=== PATIENT | female | born 1955 | race Caucasian/White ===

== ENCOUNTER → 2024-04-25 16:20 | Outpatient (BNVA) | payer SELFPAY | PROVIDERS: PCP Nurse Practitioner Family; Visit Provider Internal Medicine Cardiovascular Disease | DX: I44.0 Atrioventricular block, first degree (principal); R07.9 Chest pain, unspecified; I49.8 Other specified cardiac arrhythmias; I49.1 Atrial premature depolarization; Q24.8 Other specified congenital malformations of heart | CPT/HCPCS: 93005 ==

== ENCOUNTER 2024-06-11 08:17 | Outpatient (CLI) | payer SELFPAY ==
--- NOTE | 2024-06-11 08:30 | USCV_ITS ---
Maria Fernanda Navas Age: 69 Gender: F : 1955 Exam Date: 06/11/2024 08:30 Ordering Phys: Narendra Alanis MD ([email or web address]) Technologist: CT Exam Location: [facility] – [place] Indication: svt BP: 118 / 76 HR: 51 Rhythm: Sinus Technical Quality: Adequate MEASUREMENTS (Male / Female) Normal Values 2D ECHO LVOT Diameter 2.1 cm LV Ejection Fraction MOD 4C 70.5 % LV Ejection Fraction MOD 2C 78.8 % LV Ejection Fraction 2C AL 80.5 % LA Diameter 2.8 cm RA Systolic Volume 4C AL 69.9 ml RA Systolic Volume 4C MOD 68.8 ml LA Sys Volume AL 45.7 cm cubed LA Sys Volume Index AL 26.2 cm cubed/m squared Aorta at Sinotubular Diameter 2.4 cm IVC Diameter 2.0 cm M-MODE LA Ao Ratio MM 1.2 AV Cusp Separation MM 1.9 cm DOPPLER AV Peak Velocity 150.0 cm/s LVOT Peak Velocity 124.0 cm/s AV Area Cont Eq vti 2.5 cm squared AV Area Cont Eq pk 2.8 cm squared MV Peak Velocity 111.0 cm/s MV Area PHT 2.4 cm squared Mitral E to A Ratio 1.2 TR Peak Velocity 202.0 cm/s TR Peak Gradient 16.3 mmHg TV Peak E Velocity 63.0 cm/s PV Peak Velocity 148.0 cm/s FINDINGS Left Ventricle Normal left ventricular size, systolic function and wall thickness, with no regional wall motion abnormalities. Left ventricular ejection fraction is estimated at 60 %. Grade I/IV diastolic dysfunction (abnormal relaxation filling pattern), normal to mildly elevated filling pressures. Right Ventricle The right ventricle is normal in size and function. Right Atrium Moderately increased right atrial size. Left Atrium The left atrium is normal in size. Mitral Valve Thickened mitral valve. No mitral valve stenosis. Trace mitral valve regurgitation. Aortic Valve Moderate aortic valve calcification. No aortic valve stenosis. Trace aortic valve regurgitation. Tricuspid Valve Structurally normal tricuspid valve. [id number] tricuspid valve regurgitation. Pulmonic Valve Structurally normal pulmonic valve without significant stenosis. There is no pulmonic regurgitation. Pericardium Normal pericardium without effusion. Aorta Normal ascending aorta dimension. IVC The inferior vena cava appears normal. CONCLUSIONS Normal left ventricular size, systolic function and wall thickness, with no regional wall motion abnormalities. Left ventricular ejection fraction is estimated at 60 %. Grade I/IV diastolic dysfunction (abnormal relaxation filling pattern), normal to mildly elevated filling pressures. Moderately increased right atrial size. Moderate aortic valve calcification. No aortic valve stenosis. Trace aortic valve regurgitation. Structurally normal tricuspid valve. [id number] tricuspid valve regurgitation. There is no pericardial effusion. Right atrial pressure is around 5 mm of mercury. Narendra Alanis MD (Electronically Signed) Final Date: 11 June 2024 21:09 S
== END 2024-06-11 08:18 | disposition home or self-care (01) ==
LOC: RAD 08:19
PROVIDERS: PCP Nurse Practitioner Family; Visit Provider Internal Medicine Cardiovascular Disease
DX: I50.30 Unspecified diastolic (congestive) heart failure (principal); I47.10 Supraventricular tachycardia, unspecified; I34.89 Other nonrheumatic mitral valve disorders; I70.0 Atherosclerosis of aorta; I07.1 Rheumatic tricuspid insufficiency
CPT/HCPCS: 93306